=== PATIENT | female | born 1995 | race Caucasian/White ===

== ENCOUNTER 2017-01-29 05:29 | Emergency (ER) | payer OTHER ==
--- NOTE | ~2017-01-29 | CT2 ---
[facility] Service of [facility] RADIOLOGY TEXT RESULTS PATIENT: TIP ANGLIN LOCATION: [facility] : 95 UNIT #: [id number] AGE: [address]: Jayme Ramirez DO SEX: F ORDER DR: [id number] [facility] [address] [place], [place] [address] [id number] E MR#: [id number] Acc #: [id number] NAME: TIP ANGLIN : 1995 SEX: F STUDY DATE/TIME: 01/29/2017 6:59 UNIT: [facility] ROOM: STUDY DESCRIPTION: CT Abd and Pelv W Cont Attending Physician: Jayme Ramirez D.O. Ordering Physician: Demar Quinn M.D. Primary Care Physician: No Primary Care Physician MEDICAL IMAGING REPORT This report is preliminary unless electronic signature is present EXAM CT abdomen and pelvis with contrast, 01/29/2017. HISTORY 21-year-old female in the ED complaining of 2-week history of right lower quadrant abdomen pain. Painful urination. TECHNIQUE CT examination of the abdomen and pelvis was performed with oral and IV contrast. GI contrast material had not reached the distal ileum or colon at the time of imaging. This CT exam was performed with one or more of the following radiation dose reduction techniques: automatic exposure control, adjustment of mA and/or kV according to patient size, and iterative reconstruction. COMPARISON CT abdomen/pelvis, 06/08/2016. FINDINGS ABDOMEN FINDINGS: Small bowel and colon are normal in caliber and appearance, as imaged. Visualized portions of the appendix are normal. Moderately large volume stool in the right hemicolon. Nondistended gallbladder. No bile duct dilatation. Liver, pancreas and spleen are normal in size and appearance. Both kidneys are negative with no evidence of urinary obstruction. Normal-caliber abdominal aorta. PELVIS FINDINGS: Uterus, both ovaries, distended urinary bladder and rectum are within normal limits. No inguinal hernia or significant abdominal wall hernia. Limited lung base images show no active disease in the lower chest. [facility] of [facility] RADIOLOGY TEXT RESULTS PATIENT: [facility]GLIN [id number] [birth year] UNIT #: [id number] AGE: [address]: Jayme Ramirez DO SEX: F ORDER DR: IMPRESSION 1. Negative CT examination of the abdomen and pelvis. 2. The appendix is normal. Dictated by... Eagle Chapman M.D. THIS IS AN ELECTRONICALLY VERIFIED REPORT Eagle Chapman M.D. at 01/29/2017 4:12 PM SAYRAW/richie TD: 01/29/2017 10:57 JOB #: [id number] MEDICAL IMAGING REPORT COPY
[2017-01-29 05:20] LABS: URINE SOURCE CLEAN CATCH
[2017-01-29 05:23] LABS: BASOPHIL% 0.6 % (0-2.5); EOSINOPHIL# 0.4 X10e3 (0-0.7); EOSINOPHIL% 4.3 % (0.0-7.0); HEMATOCRIT 39.7 % (35.0-45.0); HEMOGLOBIN 13.3 gm/dL (12.0-16.0); LYMPHOCYTE# 2.7 X10e3 (1.0-3.5); LYMPHOCYTE% 31.5 % (17.0-45.0); MEAN CELL VOLUME 96.2 FL (83-96); MEAN CORPUSCULAR HEMOGLOBIN 32.2 PG (28-34); MEAN CORPUSCULAR HGB CONC 33.5 g/dL (30-36); MEAN PLATELET VOLUME 8.1 FL (6.5-11.5); MONOCYTE% 11.7 % (3.0-12.0); NEUTROPHIL# 4.4 X10e3 (1.5-7.1); NEUTROPHIL% 51.9 % (40-75); PLATELET COUNT 222 X10e3 (140-420); RED BLOOD COUNT 4.13 X10e (3.90-5.30); RED CELL DISTRIBUTION WIDTH 13.1 % (11.0-15.5); WHITE BLOOD COUNT 8.4 X10e3 (4.0-10.5)
[2017-01-29 05:30] LABS: DIFF IND NO
[2017-01-29 05:50] LABS: URINE APPEARANCE CLEAR; URINE BILIRUBIN NEG (NEG); URINE BLOOD NEG (NEG); URINE COLOR YELLOW; URINE GLUCOSE NEG (NEG); URINE KETONE NEG (NEG); URINE LEUKOCYTE ESTERASE NEG (NEG); URINE NITRATE NEG (NEG); URINE PH 5.5 (5-8); URINE PROTEIN 2+ (NEG); URINE SPECIFIC GRAVITY 1.038 (1.003-1.035)
[2017-01-29 05:53] LABS: CULTURE INDICATED? YES; URBCS1 AUWI 0-2 /[HPF] (0-2); URINE BACTERIA AUWI 1+ (NEGATIVE); URINE SQUAMOUS EPITHELIAL CELL FEW /[HPF]
[2017-01-29 06:03] LABS: URINE CRYSTALS CALCIUM OXALATE /[HPF]
[2017-01-29 06:25] LABS: ALBUMIN SERUM 4.2 g/dL (3.5-5.0); ALKALINE PHOSPHATASE 65 U/L (32-92); ALT (SGPT) 33 U/L (10-40); AMYLASE 15 U/L (0-46); AST (SGOT) 28 U/L (10-42); BILIRUBIN,TOTAL 0.3 mg/dL (0.2-2.0); BLOOD UREA NITROGEN 10 mg/dL (9-23); BUN/CREATININE RATIO 16.66; CALCIUM SERUM 9.3 mg/dL (8.4-10.2); CARBON DIOXIDE 24 mmol/L (22-31); CHLORIDE 109 mmol/L (100-111); CREATININE SERUM 0.6 mg/dL (0.6-1.4); GLOM FILT RATE Estimated ABOVE60 mL/min (>60); GLUCOSE FASTING 101 mg/dL (70-110); LIPASE 16 U/L (22-51); PROTEIN TOTAL SERUM 7.7 g/dL (6.0-8.3); SODIUM 141 mmol/L (135-145)
[2017-01-29 06:27] LABS: BILIRUBIN, DIRECT <0.1 mg/dL (0.0-0.2); BILIRUBIN,INDIRECT 0.2 mg/dL (0.0-0.9)
[2017-02-02 09:10] LABS: CHLAMYDIA TRACH Not Detected (Not Detected); N GONOR Not Detected (Not Detected)
== END 2017-01-29 09:30 | disposition home or self-care (01) ==
LOC: CED 05:29
PROVIDERS: Emergency Medicine
DX: R10.31 Right lower quadrant pain (principal); R30.0 Dysuria; F17.200 Nicotine dependence, unspecified, uncomplicated
CPT/HCPCS: 36415; 74177; 80048; 80076; 81003; 82150; 83690; 84703; 85025; 87086; 87491; 87591; 87808; 87905; 99284; J2270; J2405; Q9967

== ENCOUNTER 2017-05-21 12:17 | Emergency (ER) | payer OTHER ==
--- NOTE | ~2017-05-21 | CR72 ---
[facility] A Service of [facility] & [facility] RADIOLOGY TEXT RESULTS PATIENT: TIP ANGLIN LOCATION: [facility] : 95 UNIT #: [id number] AGE: [address]: Demar Looney MD SEX: F ORDER DR: [id number] [facility] [address] [place], [place] [address] [id number] E MR#: [id number] Acc #: [id number] NAME: TIP ANGLIN : 1995 SEX: F STUDY DATE/TIME: 05/21/2017 13:31 UNIT: [facility] ROOM: STUDY DESCRIPTION: CR Chest Single View Portable Attending Physician: Demar Looney Ordering Physician: Ed Doc Jovanni Curtis Primary Care Physician: Primary Care Physician No MEDICAL IMAGING REPORT This report is preliminary unless electronic signature is present EXAM Portable chest 05/21/2017, [facility] HISTORY 21-year-old female with chest pains short of air, dizziness, and syncopal episodes. Symptoms today. COMPARISON Chest 08/20/2014 FINDINGS AP upright portable chest demonstrates normal stable cardiac size and configuration. Hilar structures and mediastinal contours are preserved. Bilateral lungs are expanded and clear. Costophrenic angles are clear. IMPRESSION Negative chest. Dictated by... Andres Jay M.D. THIS IS AN ELECTRONICALLY VERIFIED REPORT Andres Jay M.D. at 05/21/2017 3:55 PM RUDYB/nevin TD: 05/21/2017 15:24 JOB #: [id number] MEDICAL IMAGING REPORT Page 1 of 1 COPY
--- NOTE | ~2017-05-21 | EKG ---
PATIENT: TIP ANGLIN UNIT #: [id number] Ventricular Rate: 68 BPM Atrial Rate: 68 BPM P-R Interval: 164 ms QRS Duration: 76 ms Q-T Interval: 392 ms QTC Calculation(Bezet): 416 ms P Gratis: 77 degrees Calculated R Gratis: 69 degrees Calculated T Gratis: 63 degrees Diagnosis Line: Normal sinus rhythm Diagnosis Line: Normal ECG Diagnosis Line: Diagnosis Line: Confirmed by OTILIO RAZA MD ([id number]) on 05/22/2017 Diagnosis Line: 8:20:27 PM INTERPRETING MD: LUZ MARINA ELLIS
[2017-05-21 13:10] LABS: BASOPHIL% 0.8 % (0-2.5); EOSINOPHIL# 0.2 X10e3 (0-0.7); EOSINOPHIL% 2.9 % (0.0-7.0); HEMATOCRIT 37.8 % (35.0-45.0); HEMOGLOBIN 12.7 gm/dL (12.0-16.0); LYMPHOCYTE# 1.7 X10e3 (1.0-3.5); LYMPHOCYTE% 26.9 % (17.0-45.0); MEAN CELL VOLUME 96.5 FL (83-96); MEAN CORPUSCULAR HEMOGLOBIN 32.3 PG (28-34); MEAN CORPUSCULAR HGB CONC 33.5 g/dL (30-36); MEAN PLATELET VOLUME 8.1 FL (6.5-11.5); MONOCYTE# 0.5 X10e3 (0-1.0); MONOCYTE% 7.2 % (3.0-12.0); NEUTROPHIL% 62.2 % (40-75); PLATELET COUNT 196 X10e3 (140-420); RED BLOOD COUNT 3.92 X10e (3.90-5.30); RED CELL DISTRIBUTION WIDTH 12.5 % (11.0-15.5); WHITE BLOOD COUNT 6.5 X10e3 (4.0-10.5)
[2017-05-21 13:11] LABS: DIFF IND NO
[2017-05-21 13:13] LABS: POC - CKMB <1.0 ng/mL (0.0-7.9); POC - TROPONIN <0.05 ng/mL (<=0.05)
[2017-05-21 13:19] LABS: URINE SOURCE CLEAN CATCH
[2017-05-21 13:23] LABS: URINE APPEARANCE CLEAR; URINE BILIRUBIN NEG (NEG); URINE BLOOD NEG (NEG); URINE COLOR YELLOW; URINE GLUCOSE NEG (NEG); URINE KETONE NEG (NEG); URINE LEUKOCYTE ESTERASE NEG (NEG); URINE NITRATE NEG (NEG); URINE PROTEIN 2+ (NEG); URINE SPECIFIC GRAVITY 1.008 (1.003-1.035); URINE UROBILINOGEN 0.2 MG/DL (NEG)
[2017-05-21 13:25] LABS: CULTURE INDICATED? NO; U HYALINE CASTS AUWI 0-2 /[LPF]; URINE BACTERIA AUWI NEG (NEGATIVE); URINE SQUAMOUS EPITHELIAL CELL OCC /[HPF]
[2017-05-21 13:31] LABS: BUN/CREATININE RATIO 8.57; CALCIUM SERUM 9.3 mg/dL (8.4-10.2); CREATININE SERUM 0.7 mg/dL (0.6-1.4); GLOM FILT RATE Estimated 123.9 mL/min (>60); POTASSIUM 3.7 mmol/L (3.5-5.1)
[2017-05-21 13:33] LABS: AMPHETAMINE NEG (NEG); BARBITURATES NEG (NEG); BENZODIAZEPINES NEG (NEG); COCAINE NEG (NEG); MARIJUANA NEG (NEG); OPIATES NEG (NEG); TRICYCLIC ANTIDEPRESSANTS NEG (NEG); U METHADONE NEG (NEG)
[2017-05-21 14:53] LABS: POC - CKMB <1.0 ng/mL (0.0-7.9); POC - TROPONIN <0.05 ng/mL (<=0.05)
== END 2017-05-21 15:47 | disposition home or self-care (01) ==
LOC: CED 12:17
PROVIDERS: Emergency Medicine
DX: R55 Syncope and collapse (principal); F17.210 Nicotine dependence, cigarettes, uncomplicated
CPT/HCPCS: 36415; 71010; 80048; 80307; 81003; 82553; 84484; 84703; 85025; 85379; 93005; 96360; 99284